=== PATIENT | female | born 1990 | race Caucasian/White ===

== ENCOUNTER → 2017-08-03 | Emergency (ER) | payer OTHER ==
[~2017-08-03] VITALS: Ht 170.2 cm; Wt 69.4 kg
[~2017-08-03] MED LIST: INTESTINEX680 M1 PO; LEVSIN/SL0.125 MG PO; ZANTAC300 MG PO; ZOFRAN4 MG PO
== END | disposition home or self-care (01) ==
LOC: ER 01:09
DX: K52.89 Other specified noninfective gastroenteritis and colitis (principal)